=== PATIENT | male | born 1990 | race Caucasian/White ===

== ENCOUNTER 2017-08-14 16:45 | Emergency (ER) | payer OTHER ==
[~2017-08-14] VITALS: Ht 193 cm; Wt 93.7 kg
[2017-08-14 17:02] VITALS: BP 138/73
== END 2017-08-14 17:56 | disposition home or self-care (01) ==
LOC: ED 17:50
DX: K04.7 Periapical abscess without sinus (principal); F17.200 Nicotine dependence, unspecified, uncomplicated
CPT/HCPCS: 99283

== ENCOUNTER 2018-02-19 02:35 | Emergency (ER) | payer MEDICAID, OTHER ==
[~2018-02-19] VITALS: Ht 193 cm; Wt 88.9 kg
[2018-02-19] MEDS ORDERED: DIPH,PERTUSS(ACELL),TET VAC/PF 0.5 ML IM-VACC ONE ×2 (03:00→03:13)
[2018-02-19 05:13] VITALS: BP 119/66
== END 2018-02-19 05:16 | disposition home or self-care (01) ==
LOC: ED 05:10
DX: S61.511A Laceration without foreign body of right wrist, initial encounter (principal); F10.129 Alcohol abuse with intoxication, unspecified; F17.210 Nicotine dependence, cigarettes, uncomplicated; W45.8XXA Other foreign body or object entering through skin, initial encounter; Y93.89 Activity, other specified; Y92.89 Other specified places as the place of occurrence of the external cause; Y99.8 Other external cause status
CPT/HCPCS: 90471; 90715; 99284

== ENCOUNTER 2018-02-20 07:09 | Emergency (ER) | payer MEDICAID ==
[~2018-02-20] VITALS: Ht 193 cm; Wt 90.9 kg
[2018-02-20] MEDS ORDERED: CEPHALEXIN 500 MG CAPSULE PO ONE (08:00)
[2018-02-20] MEDS ORDERED: SULFAMETH./TRIMETHOPRIM DS 800MG/160MG TABLET PO ONE (08:00)
[2018-02-20] MEDS ORDERED: CEPHALEXIN 500 MG CAPSULE ONE (08:11)
[2018-02-20] MEDS ORDERED: SULFAMETH./TRIMETHOPRIM DS 800MG/160MG TABLET ONE (08:11)
[2018-02-20 08:45] VITALS: BP 133/78
== END 2018-02-20 09:44 | disposition home or self-care (01) ==
LOC: ED 09:00
DX: L03.113 Cellulitis of right upper limb (principal); L03.116 Cellulitis of left lower limb; F17.200 Nicotine dependence, unspecified, uncomplicated
CPT/HCPCS: 99283